=== PATIENT | male | born 1970 | race Caucasian/White ===

== ENCOUNTER 2018-09-18 | Inpatient (IN) | payer OTHER ==
[~2018-09-18] VITALS: Ht 160 cm; Wt 76.2 kg
--- NOTE | 2018-09-19 02:30 | NUR ---
JACQUARD LOOM HEDDLES TIER NOTE: PT ADMITTED FROM [place] [facility] WITH ADMITTING DIAGNOSIS OF ETOH CIRRHOSIS/ASCITES. PT IS ALERT AND ORIENTED X3. ABLE TO MAKE NEEDS KNOWN. NO APPARENT DISTRESS NOTED. NO COMPLAINTS OF PAIN OR DISCOMFORT AT THIS TIME. PT NOTED TO HAVE JAUNDICED AND ABDOMINAL DISTENSION, BUT DENIES ABDOMINAL PAIN. ON ROOM AIR, BREATHING EVEN AND UNLABORED WITH NORMAL RESPIRATIONS. ON TELE MONITOR SINUS RHYTHM HR 89 BPM. PT HAS IV ON LEFT ANTECUBITAL #20 INTACT AND PATENT, FLUSHING WELL. PERTINENT ASSESSMENTS DONE. SCAB ON CHEST/FACE AND REDNESS ON PERIANAL/BILATERAL HEELS NOTED. PICTURES TAKEN AND PLACED ON CHART. PT IS CONTINENT ON BOTH BOWEL AND BLADDER, AMBULATORY TO THE BATHROOM. CALL LIGHT PLACED WITHIN REACH. KEPT CLEAN, DRY AND COMFORTABLE. SAFETY AND FALL PRECAUTIONS OBSERVED AND MAINTAINED. WILL CONTINUE TO MONITOR PT.
[2018-09-19 02:36] VITALS: BP 112/71
[2018-09-19] MEDS ORDERED: MAGNESIUM HYDROXIDE 30 ML UDC PO PRN (03:00)
[2018-09-19] MEDS ORDERED: ONDANSETRON HCL/PF 4 MG/2 ML VIAL IVP PRN (03:00)
--- NOTE | 2018-09-19 03:00 | NUR ---
PLANTING MACHINE OPERATOR NOTE: PT REFUSED BELTRAN CATH, STATED "I CAN GO TO THE BATHROOM JUST FINE". EXTRUDER LISA SAMPSON AWARE.
[2018-09-19 03:21] LABS: BASOPHILS % (AUTO) 0.2 % (0.0-2.0); EOSINOPHILS % (AUTO) 0.7 % (0.0-6.0); HEMATOCRIT 35 % (39-51); HEMOGLOBIN 12.3 g/dL (13.5-17.5); LYMPHOCYTES % (AUTO) 14.1 % (20.0-44.0); MEAN CORPUSCULAR HGB CONC 35 g/dl (31.0-36.0); MEAN CORPUSCULAR VOLUME 119 fL (80-96); MONOCYTES # (AUTO) 0.3 /CMM (0.1-1.30); MONOCYTES % (AUTO) 4.7 % (2.0-12.0); NEUTROPHILS # (AUTO) 5.7 /CMM (1.8-8.9); NEUTROPHILS % (AUTO) 80.3 % (43.0-81.0); PLATELET COUNT (AUTO) 117 /CMM (150-450); RED BLOOD CELL COUNT(AUTO) 2.95 MIL/uL (4.5-6.0); WHITE BLOOD COUNT (AUTO) 7.2 K/uL (4.3-11.0)
[2018-09-19 03:38] LABS: ALANINE AMINOTRANSFERASE 100 U/L (12-78); ALBUMIN 1.7 g/dL (3.4-5.0); ALKALINE PHOSPHATASE 128 U/L (46-116); ASPARTATE AMINOTRANSFERASE 291 U/L (15-37); BILIRUBIN,DIRECT 14.1 mg/dL (0.0-0.2); BILIRUBIN,TOTAL 17.6 mg/dL (0.2-1.0); CALCIUM, SERUM 8.5 mg/dL (8.5-10.1); CARBON DIOXIDE 29 mmol/L (21-32); CHLORIDE 83 mmol/L (98-107); CREATININE 1.7 mg/dL (0.6-1.3); GLUCOSE 84 mg/dL (74-106); MAGNESIUM 1.3 mg/dL (1.8-2.4); PHOSPHORUS 2.5 mg/dL (2.5-4.9); POTASSIUM 3.4 mmol/L (3.5-5.1); TOTAL PROTEIN, SERUM 5.8 g/dL (6.4-8.2); UREA NITROGEN, BLOOD 71 mg/dL (7-18)
[2018-09-19 03:42] LABS: SODIUM SERUM 119 mmol/L (136-145)
[2018-09-19 03:46] LABS: CHOLESTEROL 44 mg/dL (<200); LDL 31 mg/dL (0-99); THYROID STIMULATING HORMONE 2.638 uIU/mL (0.358-3.74); TRIGLYCERIDES 203 mg/dL (30-150)
[2018-09-19 03:52] LABS: HDL CHOLESTEROL < 10 mg/dL (40-60)
[2018-09-19 04:00] VITALS: BP 105/67
[2018-09-19 04:09] LABS: LIPASE 2417 U/L (73-393)
--- NOTE | 2018-09-19 04:13 | NUR ---
FRONT DESK ASSISTANT NOTE: QUETA SAMPSON MADE AWARE REGARDING CRITICAL LAB VALUES OF PT.
[2018-09-19] MEDS ORDERED: POTASSIUM CHLORIDE 20 MEQ TAB.PRT.SR PO ONE (04:30)
[2018-09-19] MEDS ORDERED: IV NS 0.9% 1,000 ML IV SCH (04:30)
[2018-09-19] MEDS ORDERED: LEVOFLOXACIN 500 MG /D5W 100ML 100 ML IV ONE (04:32)
[2018-09-19] MEDS: LEVOFLOXACIN 500 MG /D5W 100ML 500 MG in PREMIX 1 EA IV SCH (04:35)
[2018-09-19] MEDS: AZITHROMYCIN 250 MG TABLET PO SCH (04:36)
[2018-09-19 05:01] LABS: BAND % (MANUAL) 7 % (0.0-5.0); EOSINOPHILS % (MANUAL) 1 % (0-4); LYMPHOCYTES % (MANUAL) 20 % (16-48); METAMYELOCYTES % 2 % (0-0); MONOCYTES % (MANUAL) 2 % (0-11.0); MYELOCYTES % 3 % (0-0); NEUTROPHILS % (MANUAL) 64 (42-76); PROMYELOCYTES % 1 % (0-0)
--- NOTE | 2018-09-19 06:18 | NUR ---
SHEEP AND WHEAT FARMER NOTE: SPOKE TO JESSICA (SISTER) REGARDING PATIENT'S LIST OF HOME MEDS AND SHE STATED THAT SHE'LL COME TODAY AND BRING THE LIST OF HOME MEDS. WILL ENDORSE TO DAY SHIFT RN.
--- NOTE | 2018-09-19 06:35 | NUR ---
REMOTE SENSING TECHNICIAN NOTE: NO CHANGES NOTED THROUGHOUT THE SHIFT. NO APPARENT DISTRESS NOTED. DENIES PAIN AND DISCOMFORT AT THIS TIME. NO SOB NOTED. ON TELE MONITOR SINUS RHYTHM HR 98 BPM. IV ON LEFT ANTECUBITAL #20 INTACT AND PATENT WITH IVF INFUSING WELL. ENCOURAGED TO VERBALIZE NEEDS AND CONCERNS AND TO CALL FOR ASSISTANCE IF NEEDED. KEPT CLEAN, DRY AND COMFORTABLE. WILL ENDORSE TO DAY SHIFT RN FOR CONTINUITY OF CARE.
[2018-09-19 06:41] LABS: APPEARANCE,URINE TURBID (CLEAR); BILIRUBIN,URINE 3+ (NEGATIVE); BLOOD, URINE TRACE Ery/uL (NEGATIVE); COLOR,URINE AMBER (YELLOW); KETONES,URINE NEGATIVE (NEGATIVE); LEUKOCYTE ESTERASE ,URINE NEGATIVE (NEGATIVE); NITRITE, URINE POSITIVE (NEGATIVE); PH,URINE 5.5 (5.0-8.0); PROTEIN,URINE NEGATIVE (NEGATIVE); UGLUCOSE NEGATIVE (NEGATIVE); UROBILINOGEN,URINE 0.2 EU/dL (0.2)
[2018-09-19 06:53] LABS: BACTERIA,URINE Many /HPF (None Seen); RBC,URINE 0-2 /HPF (0-2); SQUAMOUS EPITHELIAL CELL,UR Rare /HPF (None Seen); WBC,URINE 0-2 /HPF (0-3)
--- NOTE | 2018-09-19 07:30 | NUR ---
ENROLLMENT MANAGEMENT VICE PRESIDENT NOTE: RECEIVED PATIENT IN BED, ASLEEP, BUT AROUSABLE WITH TACTILE STIMULI. RESPIRATION EVEN AND UNLABORED SATURATING 99% IN ROOM AIR. PATIENT DENIED PAIN AT THIS TIME JUST A SLIGHT DISCOMFORT ON HIS ABDOMINAL AREA. ON SHIRT FINISHER SR HR- 97. (L) AC IV SITE REMAINED PATENT AND INTACT INFUSING NS @50ML/HR. BED ALARMED AND LOCKED AT ALL TIMES. PATIENT WAS LAYING FLAT ON THE BED. CALL LIGHT WITHIN REACH. NEEDS ANTICIPATED.
[2018-09-19 08:00] VITALS: BP 108/68
[2018-09-19] MEDS: MAG HYDROX/AL HYDROX/SIMETH 30 ML UDC PO PRN (08:13)
[2018-09-19] MEDS: PANTOPRAZOLE 40 MG TABLET.DR PO SCH (08:13)
[2018-09-19] MEDS ORDERED: AMLO5TAB7 PO (08:19)
--- NOTE | 2018-09-19 08:30 | NUR ---
BANQUET SERVER NOTE: CALLED AND PAGED DR. GARCIA RE: THE LACTIC ACID RESULT OF 2.1 AND MD HAS NO ORDER AT THIS TIME.
[2018-09-19] MEDS: Magnesium 1GM/D5W 100ML PREMIX 100 ML IV SCH ×4 (10:30→14:06)
[2018-09-19] MEDS ORDERED: Potassium Chloride 20 MEQ in IV NS 0.9% 1,000 ML IV PRN (11:44)
[2018-09-19 12:00] VITALS: BP 97/63
[2018-09-19 12:33] LABS: CREATININE, URINE 114.7 MG/DL (30.0-125.0); URINE SODIUM, RANDOM < 5 mmol/l (40-220); URINE TOTAL PROTEIN 26.1 mg/dL (0-11.9)
[2018-09-19 13:45] LABS: BASOPHILS % (AUTO) 0.4 % (0.0-2.0); EOSINOPHILS % (AUTO) 0.4 % (0.0-6.0); HEMATOCRIT 31 % (39-51); LYMPHOCYTES # (AUTO) 1.1 /CMM (0.8-4.8); LYMPHOCYTES % (AUTO) 13.1 % (20.0-44.0); MEAN CORPUSCULAR HGB CONC 35 g/dl (31.0-36.0); MEAN CORPUSCULAR VOLUME 118 fL (80-96); MONOCYTES # (AUTO) 0.6 /CMM (0.1-1.30); MONOCYTES % (AUTO) 6.9 % (2.0-12.0); NEUTROPHILS # (AUTO) 6.5 /CMM (1.8-8.9); NEUTROPHILS % (AUTO) 79.2 % (43.0-81.0); PLATELET COUNT (AUTO) 117 /CMM (150-450); RED BLOOD CELL COUNT(AUTO) 2.64 MIL/uL (4.5-6.0); WHITE BLOOD COUNT (AUTO) 8.2 K/uL (4.3-11.0)
[2018-09-19 14:05] LABS: BAND % (MANUAL) 2 % (0.0-5.0); LYMPHOCYTES % (MANUAL) 10 % (16-48); NEUTROPHILS % (MANUAL) 85 (42-76)
[2018-09-19 14:06] LABS: MONOCYTES % (MANUAL) 3 % (0-11.0)
[2018-09-19] MEDS ORDERED: ALBUMIN 25% 25 GM in PREMIX 1 EA IV SCH (14:30)
--- NOTE | 2018-09-19 14:30 | NUR ---
SHIPPING LEAD PERSON NOTE: DR. GARCIA WAS PRESENT IN THE UNIT AND MADE HIM AWARE OF THE ALBUMIN 1.4 AND SODIUM 120. MD SAID THAT HE WILL WRITE ORDERS FOR THE PATIENT.
[2018-09-19 14:33] LABS: BILIRUBIN,DIRECT 13.3 mg/dL (0.0-0.2); BILIRUBIN,TOTAL 16.5 mg/dL (0.2-1.0); CALCIUM, SERUM 7.9 mg/dL (8.5-10.1); CREATININE 1.7 mg/dL (0.6-1.3); POTASSIUM 3.4 mmol/L (3.5-5.1); TOTAL PROTEIN, SERUM 5.1 g/dL (6.4-8.2)
[2018-09-19 14:36] LABS: ALBUMIN 1.4 g/dL (3.4-5.0)
--- NOTE | 2018-09-19 15:05 | NUR ---
CERTIFIED DIALYSIS TECHNICIAN NOTE: DR. GARCIA STILL PRESENT IN THE UNIT AND WAS INFORMED OF THE LACTIC ACID OF 2.3 MD WITH NO NEW ORDER AT THIS TIME. PATIENT AND JESSICA, SISTER WAS MADE AWARE.
[2018-09-19 16:00] VITALS: BP 101/63
[2018-09-19] MEDS: CALCIUM CARBONATE 500 MG TAB.CHEW PO PRN (16:57)
[2018-09-19] MEDS: IV LR 1000 ML 1,000 ML IV PRN (16:59)
[2018-09-19] MEDS ORDERED: ELECTROLYTE,ORAL 1,000 ML BOTTLE PO ONE (18:00)
--- NOTE | 2018-09-19 18:23 | NUR ---
EDIL RN NOTE: INFORMED DR. GARCIA AND MADE HIM AWARE THAT PATIENT WAS REQUESTING IF THERE IS SOMETHING THAT HE CAN ORDER IN ORDER TO NUMB THE PATIENT'S THROAT DUE TO THE INFLAMMATION THAT HE FELT ON THE THROAT. WITH ORDER FOR VISCOUS LIDOCAINE, NOTED AND CARRIED OUT. PATIENT AND SISTER, JESSICA MADE AWARE.
--- NOTE | 2018-09-19 19:50 | NUR ---
EDIL RN NOTE: REPORT GIVEN TO PM SHIFT NURSE FOR CONTINUITY OF CARE. PATIENT ON STABLE CONDITION AT THIS TIME.
[2018-09-19] MEDS: LIDOCAINE VISCOUS 2% UD 15 ML UDC MM PRN (19:53)
[2018-09-19 20:00] VITALS: BP 98/73
--- NOTE | 2018-09-19 20:00 | NUR ---
EDIL RN NOTE PT IN BED AWAKE. A/O X 4, NO SOB NOTED. NOTED PT WITH SEVER JAUNDICE. ABD DISTENDED. PT IS C/O SORE AND PAIN IN THROAT. LIDOCAINE VISCOUS 15 ML GIVEN ORDERED. IVF LR INFUSING AT 150 ML/HR, NO S/S OF INFILTRATION NOTED. ON TELE MONITOR SR WITH PAC AND PVC HR 77. SIDE RAILS UP X 2 AND CALL LIGHT WITHIN REACH. VSS. CONTINUE TO MONITOR.
[2018-09-19] MEDS: ALBUMIN 25% 12.5 GM in PREMIX 1 EA IV SCH (21:48)
[2018-09-19 23:52] LABS: APPEARANCE,URINE CLEAR (CLEAR); BILIRUBIN,URINE 3+ (NEGATIVE); BLOOD, URINE NEGATIVE Ery/uL (NEGATIVE); COLOR,URINE DARK YELLO (YELLOW); KETONES,URINE NEGATIVE (NEGATIVE); LEUKOCYTE ESTERASE ,URINE NEGATIVE (NEGATIVE); NITRITE, URINE NEGATIVE (NEGATIVE); PROTEIN,URINE NEGATIVE (NEGATIVE); UGLUCOSE NEGATIVE (NEGATIVE); UROBILINOGEN,URINE 0.2 EU/dL (0.2)
[2018-09-20] VITALS: BP 100/69
[2018-09-20 00:01] LABS: BACTERIA,URINE Moderate /HPF (None Seen); RBC,URINE 0-2 /HPF (0-2); SQUAMOUS EPITHELIAL CELL,UR Few /HPF (None Seen)
[2018-09-20] MEDS: LEVOFLOXACIN 500 MG /D5W 100ML 500 MG in PREMIX 1 EA IV SCH (03:45)
[2018-09-20] MEDS: IV LR 1000 ML 1,000 ML IV PRN (03:46)
[2018-09-20 04:00] VITALS: BP 156/81
[2018-09-20] MEDS: AZITHROMYCIN 250 MG TABLET PO SCH (04:00)
[2018-09-20] MEDS: ALBUMIN 25% 12.5 GM in PREMIX 1 EA IV SCH ×2 (06:38→20:07)
--- NOTE | 2018-09-20 06:45 | NUR ---
EDIL RN NOTE PT IN BED NO CHANGE IN CONDITION. WILL ENDORSE TO DAY SHIFT NURSE FOR CONTINUE TO CARE.
[2018-09-20 07:15] LABS: BASOPHILS % (AUTO) 0.3 % (0.0-2.0); EOSINOPHILS % (AUTO) 0.3 % (0.0-6.0); HEMATOCRIT 33 % (39-51); HEMOGLOBIN 11.8 g/dL (13.5-17.5); LYMPHOCYTES # (AUTO) 1.2 /CMM (0.8-4.8); LYMPHOCYTES % (AUTO) 9.1 % (20.0-44.0); MEAN CORPUSCULAR HGB CONC 36 g/dl (31.0-36.0); MEAN CORPUSCULAR VOLUME 118 fL (80-96); MONOCYTES # (AUTO) 0.4 /CMM (0.1-1.30); MONOCYTES % (AUTO) 2.9 % (2.0-12.0); NEUTROPHILS # (AUTO) 11.4 /CMM (1.8-8.9); NEUTROPHILS % (AUTO) 87.4 % (43.0-81.0); PLATELET COUNT (AUTO) 136 /CMM (150-450); RED BLOOD CELL COUNT(AUTO) 2.82 MIL/uL (4.5-6.0)
--- NOTE | 2018-09-20 07:30 | NUR ---
EDIL RN NOTE: RECEIVED PATIENT IN BED, ASLEEP, BUT AROUSABLE WITH TACTILE STIMULI. RESPIRATION EVEN AND UNLABORED SATURATING 99% IN ROOM AIR. PATIENT DENIED PAIN AT THIS TIME JUST A SLIGHT DISCOMFORT ON HIS ABDOMINAL AREA. ON [employer] ARTISTIC DIRECTOR SR HR- 74. (L) AC IV SITE REMAINED PATENT AND INTACT INFUSING LR @150ML/HR. BED ALARMED AND LOCKED AT ALL TIMES. PATIENT WAS LAYING FLAT ON THE BED. CALL LIGHT WITHIN REACH. NEEDS ANTICIPATED.
[2018-09-20 07:31] LABS: CALCIUM, SERUM 7.8 mg/dL (8.5-10.1); CREATININE 1.5 mg/dL (0.6-1.3); MAGNESIUM 2.9 mg/dL (1.8-2.4); PHOSPHORUS 1.2 mg/dL (2.5-4.9); POTASSIUM 3.6 mmol/L (3.5-5.1)
[2018-09-20 08:00] VITALS: BP_SYST 101; BP_SYST 156; BP_DIAS 68; BP_DIAS 94
[2018-09-20] MEDS: LIDOCAINE VISCOUS 2% UD 15 ML UDC MM PRN (08:11)
[2018-09-20] MEDS: PANTOPRAZOLE 40 MG TABLET.DR PO SCH (08:11)
[2018-09-20 08:54] LABS: BAND % (MANUAL) 7 % (0.0-5.0); NEUTROPHILS % (MANUAL) 80 (42-76)
[2018-09-20 08:55] LABS: LYMPHOCYTES % (MANUAL) 10 % (16-48); MONOCYTES % (MANUAL) 3 % (0-11.0)
[2018-09-20] MEDS: MAG HYDROX/AL HYDROX/SIMETH 30 ML UDC PO PRN (10:49)
[2018-09-20] MEDS: CALCIUM CARBONATE 500 MG TAB.CHEW PO PRN (10:49)
[2018-09-20] MEDS ORDERED: POTASSIUM PHOSPHATE MM 15 MMOL in IV D5W 250 ML IV SCH (11:00)
[2018-09-20] MEDS: POTASSIUM PHOSPHATE MM 7.5 MMOL in IV D5W 100 ML IV SCH ×2 (11:29→14:56)
[2018-09-20] MEDS: AMLODIPINE BESYLATE 5 MG TABLET PO SCH (11:30)
[2018-09-20 12:00] VITALS: BP 106/68
[2018-09-20 12:40] LABS: CALCIUM, SERUM 8.2 mg/dL (8.5-10.1); CREATININE 1.3 mg/dL (0.6-1.3); POTASSIUM 3.3 mmol/L (3.5-5.1)
[2018-09-20 12:46] LABS: ALBUMIN 1.9 g/dL (3.4-5.0); BILIRUBIN,TOTAL 19.2 mg/dL (0.2-1.0); TOTAL PROTEIN, SERUM 5.4 g/dL (6.4-8.2)
[2018-09-20] MEDS: Potassium Chloride 40 MEQ in IV D5/ 0.9% NACL 1,000 ML IV PRN (13:04)
[2018-09-20] MEDS ORDERED: PHYTONADIONE 5 MG TABLET PO ONE (13:30)
[2018-09-20] MEDS ORDERED: PHYTONADIONE INJ 10 MG/1 ML AMPUL IM ONE (14:00)
[2018-09-20] MEDS: LACTULOSE 10 G/15 ML UDC (PYXIS) PO SCH ×2 (14:17→20:12)
[2018-09-20 16:00] VITALS: BP 108/69
--- NOTE | 2018-09-20 19:50 | NUR ---
EDIL RN NOTE: REPORT GIVEN TO PM SHIFT NURSE FOR CONTINUITY OF CARE. EMPHASIZED TO PM NURSE THAT THE ALBUMIN 3RD BOTTLE WAS NOT ADMINISTER DUE TO UNAVAILABILITY OF ANOTHER IV LINE. PATIENT WAS RECEIVING THE POTASSIUM PHOSPHATE AT THIS TIME. PATIENT ALSO HAD 1 EPISODE OF LOOSE STOOL DUE TO THE ADMINISTRATION OF LACTULOSE.
[2018-09-20 20:00] VITALS: BP 127/83
[2018-09-21] VITALS: BP 114/74
[2018-09-21] MEDS: LACTULOSE 10 G/15 ML UDC (PYXIS) PO SCH ×4 (02:04→20:03)
[2018-09-21] MEDS: CALCIUM CARBONATE 500 MG TAB.CHEW PO PRN ×3 (03:39→19:12)
[2018-09-21] MEDS: AZITHROMYCIN 250 MG TABLET PO SCH (03:39)
[2018-09-21] MEDS: LEVOFLOXACIN 500 MG /D5W 100ML 500 MG in PREMIX 1 EA IV SCH (03:39)
[2018-09-21 04:00] VITALS: BP 115/82
[2018-09-21 06:29] LABS: BASOPHILS # (AUTO) 0.1 /CMM (0.0-0.2); BASOPHILS % (AUTO) 0.8 % (0.0-2.0); EOSINOPHILS % (AUTO) 0.2 % (0.0-6.0); HEMATOCRIT 34 % (39-51); HEMOGLOBIN 11.7 g/dL (13.5-17.5); LYMPHOCYTES # (AUTO) 1.4 /CMM (0.8-4.8); LYMPHOCYTES % (AUTO) 8.7 % (20.0-44.0); MEAN CORPUSCULAR HGB CONC 35 g/dl (31.0-36.0); MEAN CORPUSCULAR VOLUME 119 fL (80-96); MONOCYTES # (AUTO) 0.5 /CMM (0.1-1.30); MONOCYTES % (AUTO) 3.1 % (2.0-12.0); NEUTROPHILS # (AUTO) 14.2 /CMM (1.8-8.9); NEUTROPHILS % (AUTO) 87.2 % (43.0-81.0); PLATELET COUNT (AUTO) 145 /CMM (150-450); RED BLOOD CELL COUNT(AUTO) 2.83 MIL/uL (4.5-6.0); WHITE BLOOD COUNT (AUTO) 16.2 K/uL (4.3-11.0)
[2018-09-21 06:53] LABS: CALCIUM, SERUM 7.3 mg/dL (8.5-10.1); CREATININE 1.3 mg/dL (0.6-1.3); MAGNESIUM 1.8 mg/dL (1.8-2.4); PHOSPHORUS 1.3 mg/dL (2.5-4.9); POTASSIUM 3.5 mmol/L (3.5-5.1)
[2018-09-21 07:01] LABS: BAND % (MANUAL) 2 % (0.0-5.0); LYMPHOCYTES % (MANUAL) 4 % (16-48); METAMYELOCYTES % 1 % (0-0); MONOCYTES % (MANUAL) 5 % (0-11.0); NEUTROPHILS % (MANUAL) 88 (42-76)
[2018-09-21 08:00] VITALS: BP 102/68
[2018-09-21] MEDS: AMLODIPINE BESYLATE 5 MG TABLET PO SCH (08:48)
[2018-09-21] MEDS: PANTOPRAZOLE 40 MG TABLET.DR PO SCH (08:48)
[2018-09-21] MEDS: Z GUARD REMEDY 2 OZ OINT TP PRN (08:49)
--- NOTE | 2018-09-21 08:54 | NUR ---
WOUND CARE CONSULT: PT PRESENTS WITH DRY SCAB TO CHEST AND RED RASH TO INNER BUTTOCKS AND PERINEUM, PRESENT ON ADMISSION. RECOMMENDATIONS MADE FOR SKIN PROTECTION AND CARE. DISCUSSED WITH NURSING STAFF. WILL SEE PRN. PIERRE IN AGREEMENT WITH PLAN OF CARE. CURRENT COLIN SCORE IS 17. DEFER TO MD FOR CHEST SCAB. PT STATES THAT HE PICKS AT HIS SKIN. Addendum: 09/21/18 at 0856 by EUSEBIA CURRY WNDNU Amended: Links added.
[2018-09-21] MEDS: CLOTRIMAZOLE 1% 15 GM TUBE TP SCH ×2 (09:00→16:58)
--- NOTE | 2018-09-21 10:41 | NUR ---
Social service consult requested by QUETA Ward for alcohol abuse. 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 SW met with pt. beside. Pt. is alert and oriented x 4. Pt. was cooperative during the assessment. Pt. is soft spoken. Pt. lives with his family at [address] [place] [address], in [place]. Pt. is employed and works for [employer]. Pt. states his last drink was a week ago from Friday. Pt. drinks pre-mixed alcoholic drinks. Pt. wouldn't specify how many per day but states, " a couple of bottles." SW offered pt. referrals to alcoholic treatment programs, however pt. declined, stating, " I have stopped drinking now and can stop on my own." SW encouraged pt. to keep the referrals, however, pt. stated," I quit on my own the last time." Pt. denies any drug and cigarette use. Pt. denies any psychological diagnosis and denies suicidal/homicidal ideations and visual/auditory hallucinations at this this time. FATMATA once again offered pt. alcohol treatment referrals, and pt. declined. No other social service needs are requested at this time. SW is available, if needed.
[2018-09-21 12:00] VITALS: BP 109/70
[2018-09-21] MEDS: MAG HYDROX/AL HYDROX/SIMETH 30 ML UDC PO PRN (13:07)
[2018-09-21 16:00] VITALS: BP 104/73
[2018-09-21 16:08] LABS: AMYLASE 741 U/L (25-115)
[2018-09-21 16:14] LABS: LIPASE 2879 U/L (73-393)
[2018-09-21] MEDS: Magnesium 1GM/D5W 100ML PREMIX 100 ML IV SCH ×2 (16:57→18:23)
[2018-09-21] MEDS: Potassium Chloride 40 MEQ in IV D5/ 0.9% NACL 1,000 ML IV PRN (17:03)
--- NOTE | 2018-09-21 17:30 | NUR ---
RN NOTE PER DR BALLARD AND DOMINIC SELLERS TO HOLD PARACENTHESIS AND CT WITH CONTRAST UNTIL TOMORROW. RADIOLOGY AWARE.
[2018-09-21 17:33] LABS: C-REACTIVE PROTEIN 11.2 mg/dL (0.0-0.9)
[2018-09-21] MEDS: POTASSIUM PHOSPHATE MM 7.5 MMOL in IV NS 0.9% 100 ML IV SCH ×3 (18:55→23:39)
--- NOTE | 2018-09-21 19:23 | NUR ---
TD RN NOTES RECEIVED PT ON BED. A/O X 4 WITH FAMILY ON BEDSIDE. ON ROOM AIR NO RESPIRATORY DISTRESS NOTED. ON TELE MONITOR SR 74. IV ACCESS ON LAC G20 WITH KC1 40MEQ RUNNING @ 75MHR AND ANOTHER RIGHT HAND G22G PATENT AND INTACT. HEAD OF BED ELEVATED. SIDE RAILS UP. CALL LIGHT WITHIN REACH. BED ALARM ON. WILL CONTINUE TO MONITOR PT CLOSELY.
[2018-09-21 20:00] VITALS: BP 101/66
--- NOTE | 2018-09-21 22:00 | NUR ---
TD RN NOTES PER DR JACKY TUCKER TO HAVE ICE CHIPS. NPO EXCEPT MEDS.
[2018-09-21] MEDS: NITROFURANTOIN/NITROFURAN MAC 100 MG CAPSULE PO SCH (22:07)
--- NOTE | 2018-09-21 23:42 | NUR ---
TD RN NOTES V/S 0000 NOT TAKEN. PT WANTS TO REST. EXPLAINED RISK AND BENEFITS PT STILL REFUSED. WILL CONTINUE TO MONITOR PT CLOSELY.
[2018-09-22] MEDS ORDERED: NITROFURANTOIN MACROCRYSTAL 50 MG CAPSULE PO SCH
[2018-09-22] MEDS: LACTULOSE 10 G/15 ML UDC (PYXIS) PO SCH ×4 (00:51→20:03)
[2018-09-22] MEDS: POTASSIUM PHOSPHATE MM 7.5 MMOL in IV NS 0.9% 100 ML IV SCH (03:13)
--- NOTE | 2018-09-22 04:08 | NUR ---
TD RN NOTES PT REFUSED V/S CHECKED. PER PT HE WANTS TO REST. WILL MONITOR PT CLOSELY.
--- NOTE | 2018-09-22 06:28 | NUR ---
TD RN NOTES NO ACUTE CHANGES NOTED DURING THE SHIFT. PROVIDED COMFORT. DUE MEDS GIVEN. PROVIDED COMFORT AND SAFETY. WILL ENDORSE TO THE AM NURSE FOR CONTINUITY OF CARE.
--- NOTE | 2018-09-22 07:00 | NUR ---
RN NOTES RECEIVED PT ON BED. A/O X 4, ON RA , RESPIRATION EVEN AND UNLABORED, NO DISTRESS NOTED, ON TELE SR HR IN 80'S . NPO THIS AM, IVF RUNNING AT 75CC /HR VIA LEFT AC IV SITE G 20 , SITE CLEAN , DRY AND INTACT, SR UP x3, CALL LIGHT WITHIN EASY REACH, BED LOCKED AND IN LOWEST POSITION, CONTINUE TO MONITOR .
[2018-09-22 07:25] LABS: BASOPHILS # (AUTO) 0.1 /CMM (0.0-0.2); BASOPHILS % (AUTO) 0.4 % (0.0-2.0); EOSINOPHILS % (AUTO) 0.2 % (0.0-6.0); HEMATOCRIT 32 % (39-51); HEMOGLOBIN 11.2 g/dL (13.5-17.5); LYMPHOCYTES # (AUTO) 1.2 /CMM (0.8-4.8); LYMPHOCYTES % (AUTO) 6.2 % (20.0-44.0); MEAN CORPUSCULAR HGB CONC 35 g/dl (31.0-36.0); MEAN CORPUSCULAR VOLUME 119 fL (80-96); MONOCYTES # (AUTO) 0.7 /CMM (0.1-1.30); MONOCYTES % (AUTO) 3.4 % (2.0-12.0); NEUTROPHILS # (AUTO) 17.2 /CMM (1.8-8.9); NEUTROPHILS % (AUTO) 89.8 % (43.0-81.0); PLATELET COUNT (AUTO) 154 /CMM (150-450); RED BLOOD CELL COUNT(AUTO) 2.68 MIL/uL (4.5-6.0); WHITE BLOOD COUNT (AUTO) 19.2 K/uL (4.3-11.0)
[2018-09-22 07:30] LABS: CREATININE 1.1 mg/dL (0.6-1.3); MAGNESIUM 1.9 mg/dL (1.8-2.4); PHOSPHORUS 2.3 mg/dL (2.5-4.9); POTASSIUM 4.4 mmol/L (3.5-5.1)
[2018-09-22 07:47] LABS: BAND % (MANUAL) 2 % (0.0-5.0); LYMPHOCYTES % (MANUAL) 5 % (16-48); MONOCYTES % (MANUAL) 4 % (0-11.0); MYELOCYTES % 2 % (0-0); NEUTROPHILS % (MANUAL) 87 (42-76)
[2018-09-22 08:00] VITALS: BP 103/75
[2018-09-22] MEDS: PANTOPRAZOLE 40 MG TABLET.DR PO SCH (08:07)
[2018-09-22] MEDS: NITROFURANTOIN/NITROFURAN MAC 100 MG CAPSULE PO SCH ×2 (08:07→20:03)
[2018-09-22] MEDS: AMLODIPINE BESYLATE 5 MG TABLET PO SCH (08:07)
[2018-09-22 08:08] LABS: *SPE A/G RATIO 0.4 (0.7-1.7); *SPE ALBUMIN 1.5 g/dL (2.9-4.4); *SPE ALPHA-1-GLOBULIN 0.3 g/dL (0.0-0.4); *SPE ALPHA-2-GLOBULIN 0.5 g/dL (0.4-1.0); *SPE BETA GLOBULIN 1.3 g/dL (0.7-1.3); *SPE GLOBULIN, TOTAL 3.5 g/dL (2.2-3.9); *SPE M-SPIKE Not Observed g/dL (Not Observed); *SPEGAMMA GLOBULIN 1.5 g/dL (0.4-1.8)
[2018-09-22] MEDS: CLOTRIMAZOLE 1% 15 GM TUBE TP SCH ×2 (08:12→16:10)
[2018-09-22] MEDS ORDERED: IV NS 0.9% 250 ML IV ONE (09:55)
[2018-09-22] MEDS ORDERED: IOHEXOL-300 100 ML VIAL IV ONE (09:55)
[2018-09-22] MEDS ORDERED: CT SWABBABLE VALVE TRANS SET 1 EA INFUS.SET MC ONE (09:55)
[2018-09-22] MEDS ORDERED: K PHOS NEUTRAL 250 MG TABLET PO ONE (12:00)
--- NOTE | 2018-09-22 12:00 | NUR ---
RN NOTES PT UP TO BATHROOM , SUPPORTIVE FAMILY AT THE BEDSIDE, CONTINUE TO MONITOR .
[2018-09-22 12:11] LABS: PTH, INTACT 51 pg/mL (15-65)
[2018-09-22] MEDS: Potassium Chloride 40 MEQ in IV D5/ 0.9% NACL 1,000 ML IV PRN (13:12)
[2018-09-22 16:00] VITALS: BP 114/73
--- NOTE | 2018-09-22 18:16 | NUR ---
RN NOTES VSS STABLE , NO SIGNIFICANT CHANGES NOTED ON THIS SHIFT, WILL ENDOSE TO SUPPLY REQUIREMENTS OFFICER NURSE FOR CONTINUITY OF CARE
[2018-09-22 20:00] VITALS: BP 110/82
--- NOTE | 2018-09-22 20:00 | NUR ---
ms/rn opening notes RECEIVED PATIENT IN BED, AWAKE, ALERT X3, ABLE RESTING COMFORTABLY IN BED, SKIN WARM TO TOUCH, RESPIRATIONS EVEN AND UNLABORED, VERBALIZES NEEDS, DISCUSSED PLAN OF CARE, INFORM WITH FLUID RESTRICTIONS, IV SITE CHECK, PATENT W/ NO S/S OF INFILTRATION, REQUIRE SAFETY MONITORING DUE TO FREQUENCY OF GOING TO BATHROOM, COMPLIANT TO MEDICATION. RECEIVED MEDICATION LACTULOSE, SKIN YELLOW COLOR. CALL LIGHTS WITHIN REACH, BED LOCKED, WILL MONITOR.
[2018-09-23] MEDS: LACTULOSE 10 G/15 ML UDC (PYXIS) PO SCH ×4 (01:34→19:16)
[2018-09-23 04:00] VITALS: BP 110/82
[2018-09-23 06:22] LABS: BASOPHILS % (AUTO) 0.1 % (0.0-2.0); EOSINOPHILS % (AUTO) 0.3 % (0.0-6.0); HEMATOCRIT 35 % (39-51); LYMPHOCYTES # (AUTO) 1.4 /CMM (0.8-4.8); MEAN CORPUSCULAR HGB CONC 35 g/dl (31.0-36.0); MEAN CORPUSCULAR VOLUME 120 fL (80-96); MONOCYTES # (AUTO) 0.7 /CMM (0.1-1.30); MONOCYTES % (AUTO) 3.5 % (2.0-12.0); NEUTROPHILS # (AUTO) 18.5 /CMM (1.8-8.9); NEUTROPHILS % (AUTO) 89.1 % (43.0-81.0); PLATELET COUNT (AUTO) 171 /CMM (150-450); RED BLOOD CELL COUNT(AUTO) 2.88 MIL/uL (4.5-6.0); WHITE BLOOD COUNT (AUTO) 20.7 K/uL (4.3-11.0)
--- NOTE | 2018-09-23 06:23 | NUR ---
MS/RN NOTES PATIENT ABLE TO SLEEP INTERMITENTLY, ASSISTED TO BATHROOM FOR BATHROOM, KEPT COMFORTABLE, APPLIED WARM COMPRESS ON THE LOWER BACK, ABLE TO COOPERATE AND PARTICPATE WITH CARE, CALL LIGHTS WITHIN REACH, BED LOCKED, ADBOMINAL DISTENTION NOTED, WILL MONITOR.WILL ENDORSE TO AM RN FOR ANUJA.
[2018-09-23 06:36] LABS: CALCIUM, SERUM 6.7 mg/dL (8.5-10.1); CREATININE 1.1 mg/dL (0.6-1.3); PHOSPHORUS 1.8 mg/dL (2.5-4.9); POTASSIUM 3.8 mmol/L (3.5-5.1)
[2018-09-23] MEDS: PANTOPRAZOLE 40 MG TABLET.DR PO SCH (07:30)
[2018-09-23 08:00] VITALS: BP 110/76
[2018-09-23] MEDS: AMLODIPINE BESYLATE 5 MG TABLET PO SCH (08:37)
[2018-09-23] MEDS: NITROFURANTOIN/NITROFURAN MAC 100 MG CAPSULE PO SCH ×2 (08:39→22:08)
[2018-09-23] MEDS: CLOTRIMAZOLE 1% 15 GM TUBE TP SCH ×2 (08:40→19:18)
[2018-09-23 09:11] LABS: BAND % (MANUAL) 1 % (0.0-5.0); LYMPHOCYTES % (MANUAL) 7 % (16-48); MONOCYTES % (MANUAL) 7 % (0-11.0); NEUTROPHILS % (MANUAL) 85 (42-76)
[2018-09-23] MEDS ORDERED: K PHOS NEUTRAL 250 MG TABLET PO ONE (15:00)
[2018-09-23 16:00] VITALS: BP 108/70
[2018-09-23] MEDS: Potassium Chloride 40 MEQ in IV D5/ 0.9% NACL 1,000 ML IV PRN (19:16)
--- NOTE | 2018-09-23 19:30 | NUR ---
MEDSURG RN NOTE PATIENT RESTING IN BED IN STABLE CONDITION, IV FLUIDS INFUSING ORDERED. IV SITES INTACT. NO ACUTE DISTRESS, ABLE TO MAKE NEEDS KNOWN. CALL LIGHT WITHIN REACH, BED IN LOW LOCKED POSITION, ENDORSED TO OFFICE COORDINATOR RECEPTIONIST NURSE FOR CONTINUITY OF CARE.
[2018-09-23 22:04] VITALS: BP 88/57
[2018-09-24 00:10] VITALS: BP 88/57
[2018-09-24] MEDS: LACTULOSE 10 G/15 ML UDC (PYXIS) PO SCH ×4 (02:01→18:08)
[2018-09-24 04:27] VITALS: BP 103/69
[2018-09-24 06:30] LABS: BASOPHILS # (AUTO) 0.1 /CMM (0.0-0.2); BASOPHILS % (AUTO) 0.5 % (0.0-2.0); EOSINOPHILS % (AUTO) 0.3 % (0.0-6.0); HEMATOCRIT 33 % (39-51); HEMOGLOBIN 11.4 g/dL (13.5-17.5); LYMPHOCYTES # (AUTO) 1.3 /CMM (0.8-4.8); LYMPHOCYTES % (AUTO) 7.3 % (20.0-44.0); MEAN CORPUSCULAR HGB CONC 35 g/dl (31.0-36.0); MEAN CORPUSCULAR VOLUME 121 fL (80-96); MONOCYTES # (AUTO) 0.5 /CMM (0.1-1.30); MONOCYTES % (AUTO) 2.6 % (2.0-12.0); NEUTROPHILS # (AUTO) 15.5 /CMM (1.8-8.9); NEUTROPHILS % (AUTO) 89.3 % (43.0-81.0); PLATELET COUNT (AUTO) 141 /CMM (150-450); RED BLOOD CELL COUNT(AUTO) 2.71 MIL/uL (4.5-6.0); WHITE BLOOD COUNT (AUTO) 17.3 K/uL (4.3-11.0)
[2018-09-24 06:39] LABS: ALANINE AMINOTRANSFERASE 52 U/L (12-78); ALKALINE PHOSPHATASE 165 U/L (46-116); ASPARTATE AMINOTRANSFERASE 152 U/L (15-37); BILIRUBIN,TOTAL 16.5 mg/dL (0.2-1.0); CALCIUM, SERUM 6.3 mg/dL (8.5-10.1); CARBON DIOXIDE 26 mmol/L (21-32); CHLORIDE 96 mmol/L (98-107); CREATININE 1.1 mg/dL (0.6-1.3); GLUCOSE 140 mg/dL (74-106); POTASSIUM 4.1 mmol/L (3.5-5.1); SODIUM SERUM 131 mmol/L (136-145); TOTAL PROTEIN, SERUM 5.3 g/dL (6.4-8.2); UREA NITROGEN, BLOOD 34 mg/dL (7-18)
[2018-09-24] MEDS: PANTOPRAZOLE 40 MG TABLET.DR PO SCH (06:46)
[2018-09-24 06:48] LABS: ALBUMIN 1.4 g/dL (3.4-5.0)
[2018-09-24 08:00] VITALS: BP 104/71
[2018-09-24 08:23] LABS: BILIRUBIN,DIRECT 13.4 mg/dL (0.0-0.2)
--- NOTE | 2018-09-24 08:42 | NUR ---
Elevated lactic acid 3.4 Low albumin level 1.[address] Magana, with no new orders at this time, per MD he see patient.
[2018-09-24 08:58] LABS: BAND % (MANUAL) 2 % (0.0-5.0); EOSINOPHILS % (MANUAL) 1 % (0-4); LYMPHOCYTES % (MANUAL) 3 % (16-48); MONOCYTES % (MANUAL) 3 % (0-11.0); NEUTROPHILS % (MANUAL) 91 (42-76)
[2018-09-24] MEDS: NITROFURANTOIN/NITROFURAN MAC 100 MG CAPSULE PO SCH ×2 (09:05→21:21)
--- NOTE | 2018-09-24 09:05 | NUR ---
MS RN INITIAL NOTES Patient in bed, awake. Stable on RA, no shortness of breath, refused breakfast. Appears weak, abdomen still distended, rounded, skin jaundice, Hx Alcohol liver hepatitis. IVF infusing, lactic elevated, afebrile. Maintained safety. Will cont to monitor.
[2018-09-24] MEDS: AMLODIPINE BESYLATE 5 MG TABLET PO SCH (09:06)
[2018-09-24] MEDS: Potassium Chloride 40 MEQ in IV D5/ 0.9% NACL 1,000 ML IV PRN (09:08)
[2018-09-24] MEDS: CLOTRIMAZOLE 1% 15 GM TUBE TP SCH ×2 (09:10→18:06)
[2018-09-24] MEDS ORDERED: diphenhydrAMINE HCL 25 MG CAPSULE PO ONE (12:30)
[2018-09-24 16:00] VITALS: BP 112/79
[2018-09-24] MEDS: ENSURE CLEAR 237 ML LIQUID (MIX BERRY) PO SCH (17:00)
[2018-09-24] MEDS ORDERED: CEFOTAXIME SODIUM 1 G in IV D5W 50 ML IV SCH (17:00)
[2018-09-24] MEDS: CEFTRIAXONE 2 G in IV D5W 100 ML IV SCH (18:03)
[2018-09-24] MEDS: Z GUARD REMEDY 2 OZ OINT TP PRN (18:06)
--- NOTE | 2018-09-24 18:49 | NUR ---
MS RN CLOSING NOTES Patient in bed, dinner served with poor appetite, provided supplement ensure drink. Had multiple loose/diarrhea today, lactulose held as ordered. VSS, stable on room air, denies SOB. IVF infusing, maintained at 75ml/hr. Continued on PO + IV antibiotic per GI. Coccyx with open wound, wound care consult place, charge nurse is aware. Maintained safety, will endorse to oncoming RN.
--- NOTE | 2018-09-24 19:40 | NUR ---
MS1 RN NOTES RECEIVED ON BED A/O X4,BREATHING NON LABORED,NOTED GENERALIZED JAUNDICE,ABDOMEN DISTENDED BUT SOFT DUE TO ASCITES.WITH SALINE LOCK ON RIGHT AND LEFT ARM.WITH IVF WITH 40 MEQ KCL INFUSING AT 75ML/HR RATE VIA IV PUMP.VISITORS AT BEDSIDE.AMBULATE WITH ASSIST.CALL LIGHT IN REACH,NEEDS ANTICIPATED.
--- NOTE | 2018-09-24 20:30 | NUR ---
MS 1 RN NOTES REPORT GIVEN TO JABARI FOR CONTINUITY OF CARE.
--- NOTE | 2018-09-24 21:16 | NUR ---
IVY RECEIVED REPORT FROM RN FOR CONTINUITY OF CARE. PRESENT IVF INFUSING WELL, ABDOMEN DISTENDED, NO SOB SEEN. SAFETY PRECAUTIONS EMPHASIZED, APPEARS TO UNDERSTAND. CLOSELY WATCHED.
--- NOTE | 2018-09-24 22:44 | NUR ---
MSRN ASSITED TO RESTROOM HAD LOOSE BM. ASSISTED BACK TO BED NEED HELP POSITIONING. HS CARE STARTED BY SECURITY ESCORT. OFFERED BSC DECLINED. FLUIDS RESTRICTED. WILL HOLD LACTULOSE FOR NOW. STATED HAVING FREQUENT DIARRHEA. IVF CONTINUED.
[2018-09-24 23:13] VITALS: BP 113/78
[2018-09-24 23:21] VITALS: BP 113/78
--- NOTE | 2018-09-25 00:26 | NUR ---
MSRN ENDORSED TO RN FOR CONTINUITY OF CARE
[2018-09-25] MEDS: LACTULOSE 10 G/15 ML UDC (PYXIS) PO SCH ×4 (01:30→19:30)
[2018-09-25 04:00] VITALS: BP 114/88
--- NOTE | 2018-09-25 07:10 | NUR ---
RN OPENING NOTES RECEIVED PT. IN BED A&OX4. BREATHING UNLABORED ON ROOM AIR. NO S/S OF ACUTE DISTRESS. IV FLUIDS RUNNING AT 75 ML/HR. BED IS IN LOWEST, AND LOCKED POSITION. 2 SIDE RAILS UP, AND INSTRUCTED PT. TO USE CALL LIGHT FOR ASSISTANCE.
[2018-09-25] MEDS: PANTOPRAZOLE 40 MG TABLET.DR PO SCH (07:33)
--- NOTE | 2018-09-25 07:33 | NUR ---
MS1 RN NOTES ON BED A/O X2-3,NO COMPLAINTS OF PAIN,BREATHING NON LABORED,JAUNDICED.CALL LIGHT IN REACH,NEEDS ATTENDED.
[2018-09-25 07:48] LABS: BASOPHILS # (AUTO) 0.1 /CMM (0.0-0.2); BASOPHILS % (AUTO) 0.4 % (0.0-2.0); EOSINOPHILS % (AUTO) 0.4 % (0.0-6.0); HEMATOCRIT 33 % (39-51); HEMOGLOBIN 11.3 g/dL (13.5-17.5); LYMPHOCYTES # (AUTO) 1.4 /CMM (0.8-4.8); LYMPHOCYTES % (AUTO) 7.9 % (20.0-44.0); MEAN CORPUSCULAR HGB CONC 34 g/dl (31.0-36.0); MEAN CORPUSCULAR VOLUME 122 fL (80-96); MONOCYTES # (AUTO) 0.6 /CMM (0.1-1.30); MONOCYTES % (AUTO) 3.6 % (2.0-12.0); NEUTROPHILS # (AUTO) 15.5 /CMM (1.8-8.9); NEUTROPHILS % (AUTO) 87.7 % (43.0-81.0); PLATELET COUNT (AUTO) 143 /CMM (150-450); RED BLOOD CELL COUNT(AUTO) 2.73 MIL/uL (4.5-6.0); WHITE BLOOD COUNT (AUTO) 17.6 K/uL (4.3-11.0)
[2018-09-25 08:00] VITALS: BP 107/77
[2018-09-25 08:00] LABS: CALCIUM, SERUM 6.2 mg/dL (8.5-10.1); CREATININE 1.3 mg/dL (0.6-1.3); POTASSIUM 4.6 mmol/L (3.5-5.1)
[2018-09-25] MEDS: ENSURE CLEAR 237 ML LIQUID (MIX BERRY) PO SCH ×2 (08:00→17:00)
--- NOTE | 2018-09-25 08:38 | NUR ---
WOUND CARE CONSULT PATIENT SEEN FOR COCCYX SKIN ISSUES, SEE SEE ASSESSMENT, RECOMMENDED TO USE Z GUARD ORDERED, PATIENT AMBULATED, INDEPENDENT WITH BED MOBILITY, NO LONGER HAS LOOSE STOOL , WILL SEE PRN Addendum: 09/25/18 at 0841 by GARLAND LO RN Amended: Links added.
[2018-09-25] MEDS ORDERED: IV D5/0.45 NACL 1,000 ML IV PRN (09:00)
[2018-09-25] MEDS ORDERED: ALBUMIN 25% 25 GM in PREMIX 1 EA IV SCH (09:30)
[2018-09-25] MEDS: NITROFURANTOIN/NITROFURAN MAC 100 MG CAPSULE PO SCH ×2 (10:00→20:32)
[2018-09-25] MEDS: AMLODIPINE BESYLATE 5 MG TABLET PO SCH (10:01)
[2018-09-25] MEDS: CLOTRIMAZOLE 1% 15 GM TUBE TP SCH ×2 (10:03→16:59)
[2018-09-25] MEDS: ALBUMIN 25% 25 GM in PREMIX 1 EA IV SCH ×2 (11:12→22:01)
[2018-09-25 16:00] VITALS: BP 107/75
[2018-09-25] MEDS: CEFTRIAXONE 2 G in IV D5W 100 ML IV SCH (16:44)
--- NOTE | 2018-09-25 19:53 | NUR ---
RN CLOSING NOTES PT. IN BED A&OX4. BREATHING UNLABORED ON ROOM AIR. NO S/S OF ACUTE DISTRESS. BED IS IN LOWEST, AND LOCKED POSITION. 2 SIDE RAILS UP, AND INSTRUCTED PT. TO USE CALL LIGHT FOR ASSISTANCE. WILL ENDORSE REPORT TO NURSE.
[2018-09-25 20:00] VITALS: BP 105/68
[2018-09-25] MEDS: CALCIUM CARBONATE 500 MG TAB.CHEW PO PRN (22:02)
[2018-09-26] MEDS: LACTULOSE 10 G/15 ML UDC (PYXIS) PO SCH ×4 (01:30→19:30)
[2018-09-26 04:00] VITALS: BP 95/62
[2018-09-26] MEDS: PANTOPRAZOLE 40 MG TABLET.DR PO SCH (06:33)
[2018-09-26 06:43] LABS: BASOPHILS % (AUTO) 0.3 % (0.0-2.0); EOSINOPHILS % (AUTO) 0.5 % (0.0-6.0); HEMATOCRIT 28 % (39-51); HEMOGLOBIN 9.6 g/dL (13.5-17.5); LYMPHOCYTES # (AUTO) 1.4 /CMM (0.8-4.8); LYMPHOCYTES % (AUTO) 9.1 % (20.0-44.0); MEAN CORPUSCULAR HGB CONC 35 g/dl (31.0-36.0); MEAN CORPUSCULAR VOLUME 122 fL (80-96); MONOCYTES # (AUTO) 0.8 /CMM (0.1-1.30); MONOCYTES % (AUTO) 5.2 % (2.0-12.0); NEUTROPHILS # (AUTO) 12.7 /CMM (1.8-8.9); NEUTROPHILS % (AUTO) 84.9 % (43.0-81.0); PLATELET COUNT (AUTO) 113 /CMM (150-450); RED BLOOD CELL COUNT(AUTO) 2.25 MIL/uL (4.5-6.0)
--- NOTE | 2018-09-26 06:58 | NUR ---
RN CLOSING NOTES PATIENT COMPLAINING OF PRESSURE IN STOMACH, INTERMITTENT COMPLAINTS OF NAUSEA WITH PATIENT SPITTING OUT GASTRIC FLUIDS. COMPLAINING OF SHORTNESS OF BREATH WITH STOMACH PRESSURE. STRICT FLUID RESTRICTION REINFORCED OF 900mL/day. ALBUMIN GIVEN ORDERED. MEDICATED PATIENT WITH TUMS AND ZOFRAN WITH MINIMAL HELP FOR THE PATIENT. PATIENT WITH HOB ELEVATED FOR COMFORT. REPOSITIONED NEEDED. NEEDS ANTICIPATED AND MET. CALL LIGHT IN REACH. WILL ENDORSE ACCORDINGLY.
--- NOTE | 2018-09-26 07:12 | NUR ---
rn opening notes received patient in stable condition. no acute distress, no sob noted. denied pain or discomfort at the moment. iv access intact and patent. kept patient safe and comfortable. bed in low/locked position, siderails upx2, call light in reach. will continue to monitor accordingly.
[2018-09-26 07:15] LABS: CALCIUM, SERUM 6.1 mg/dL (8.5-10.1); CREATININE 1.5 mg/dL (0.6-1.3)
[2018-09-26 08:00] VITALS: BP 111/73
[2018-09-26] MEDS: CLOTRIMAZOLE 1% 15 GM TUBE TP SCH ×2 (09:22→18:14)
[2018-09-26] MEDS: NITROFURANTOIN/NITROFURAN MAC 100 MG CAPSULE PO SCH (09:22)
[2018-09-26] MEDS: AMLODIPINE BESYLATE 5 MG TABLET PO SCH (09:23)
[2018-09-26] MEDS: ENSURE CLEAR 237 ML LIQUID (MIX BERRY) PO SCH ×2 (09:25→18:14)
[2018-09-26 10:04] LABS: BAND % (MANUAL) 4 % (0.0-5.0); LYMPHOCYTES % (MANUAL) 11 % (16-48); NEUTROPHILS % (MANUAL) 79 (42-76)
[2018-09-26 10:06] LABS: MONOCYTES % (MANUAL) 6 % (0-11.0)
[2018-09-26 12:00] VITALS: BP 119/78
[2018-09-26] MEDS: ALBUMIN 25% 25 GM in PREMIX 1 EA IV SCH ×2 (12:08→23:41)
[2018-09-26 16:00] VITALS: BP 116/73
[2018-09-26] MEDS: CEFTRIAXONE 2 G in IV D5W 100 ML IV SCH (18:13)
--- NOTE | 2018-09-26 19:30 | NUR ---
rn closing notes patient in stable condition. all needs attended and provided. all due medications given as ordered. kept patient safe and comfortable. bed in low/locked position. siderails upx2, call light in reach. endorsed to night rn for collin.
[2018-09-26 20:00] VITALS: BP 127/80
--- NOTE | 2018-09-26 20:00 | NUR ---
RN OPENING NOTES RECEIVED PT REPORT FROM AM NURSE. PATIENT IS IN BED A&OX4. BREATHING UNLABORED ON ROOM AIR. NO S/S OF ACUTE DISTRESS. PATIENT COMPLAINS OF LOW BACK PAIN 3/10 AT THIS TIME. BED IS IN LOWEST, AND LOCKED POSITION. 2 SIDE RAILS UP, AND INSTRUCTED PT. TO USE CALL LIGHT FOR ASSISTANCE. PATIENT IS ON 900ML FLUID RESTRICTION. IV LINE IS PATIENT, INTACT. SKIN IS YELLOW JAUNDICED.
[2018-09-26] MEDS: CALCIUM CARBONATE 500 MG TAB.CHEW PO PRN (22:49)
[2018-09-27] MEDS: LACTULOSE 10 G/15 ML UDC (PYXIS) PO SCH ×4 (01:30→19:30)
[2018-09-27 04:00] VITALS: BP 108/71
[2018-09-27 07:13] LABS: BASOPHILS # (AUTO) 0.1 /CMM (0.0-0.2); BASOPHILS % (AUTO) 0.5 % (0.0-2.0); EOSINOPHILS % (AUTO) 0.9 % (0.0-6.0); HEMATOCRIT 24 % (39-51); HEMOGLOBIN 8.4 g/dL (13.5-17.5); LYMPHOCYTES # (AUTO) 1.2 /CMM (0.8-4.8); MEAN CORPUSCULAR HGB CONC 35 g/dl (31.0-36.0); MEAN CORPUSCULAR VOLUME 121 fL (80-96); MONOCYTES # (AUTO) 0.4 /CMM (0.1-1.30); MONOCYTES % (AUTO) 3.5 % (2.0-12.0); NEUTROPHILS # (AUTO) 9.9 /CMM (1.8-8.9); NEUTROPHILS % (AUTO) 85.1 % (43.0-81.0); PLATELET COUNT (AUTO) 86 /CMM (150-450); RED BLOOD CELL COUNT(AUTO) 2.01 MIL/uL (4.5-6.0); WHITE BLOOD COUNT (AUTO) 11.7 K/uL (4.3-11.0)
--- NOTE | 2018-09-27 07:44 | NUR ---
RN OPENING NOTES PT RECEIVED IN BED AT LOWEST AND LOCKED POSITION WITH SIDE RAILS UP X2, A/O X4, BREATHING EVEN AND UNLABORED, NO PAIN OR DISTRESS NOTED AT THIS TIME, IV IS PATENT AND INTACT, NOTED TO HAVE JAUNDICE, SAFETY PRECAUTIONS IN PLACE, CALL LIGHT WITHIN REACH, WILL MONITOR ACCORDINGLY
[2018-09-27 07:49] LABS: ALBUMIN 2.6 g/dL (3.4-5.0); BILIRUBIN,DIRECT 8.1 mg/dL (0.0-0.2); BILIRUBIN,TOTAL 10.6 mg/dL (0.2-1.0); CALCIUM, SERUM 6.4 mg/dL (8.5-10.1); CREATININE 1.4 mg/dL (0.6-1.3); POTASSIUM 3.1 mmol/L (3.5-5.1); TOTAL PROTEIN, SERUM 5.7 g/dL (6.4-8.2)
[2018-09-27 08:00] VITALS: BP 111/70
[2018-09-27] MEDS: PANTOPRAZOLE 40 MG TABLET.DR PO SCH (08:19)
[2018-09-27] MEDS: AMLODIPINE BESYLATE 5 MG TABLET PO SCH (08:20)
[2018-09-27] MEDS: ENSURE CLEAR 237 ML LIQUID (MIX BERRY) PO SCH ×2 (08:22→16:00)
[2018-09-27] MEDS: CLOTRIMAZOLE 1% 15 GM TUBE TP SCH ×2 (08:22→16:00)
[2018-09-27] MEDS: POTASSIUM CHLORIDE 20 MEQ TAB.PRT.SR PO SCH ×2 (09:26→10:27)
--- NOTE | 2018-09-27 11:00 | NUR ---
RN NOTES POTASSIUM WAS REPLACED
[2018-09-27 11:55] LABS: BAND % (MANUAL) 5 % (0.0-5.0); EOSINOPHILS % (MANUAL) 2 % (0-4); LYMPHOCYTES % (MANUAL) 11 % (16-48); MONOCYTES % (MANUAL) 4 % (0-11.0); NEUTROPHILS % (MANUAL) 78 (42-76)
[2018-09-27 12:00] VITALS: BP 104/65
[2018-09-27 12:23] VITALS: BP 104/65
[2018-09-27 16:00] VITALS: BP 104/66
[2018-09-27] MEDS: CEFTRIAXONE 2 G in IV D5W 100 ML IV SCH (16:00)
--- NOTE | 2018-09-27 16:45 | NUR ---
RN NOTES RIGHT HAND IV WAS REMOVED, NEW IV IV WAS PLACED IN THE RIGHT AC GAUGE 20
--- NOTE | 2018-09-27 18:21 | NUR ---
RN CLOSING NOTES PT IN BED AT LOWEST AND LOCKED POSITION WITH SIDE RAILS UP X2, A/O X4, BREATHING EVEN AND UNLABORED, NO PAIN OR DISTRESS NOTED AT THIS TIME, RIGHT AC #20 IV IS PATENT AND INTACT, SAFETY PRECAUTIONS IN PLACE, CALL LIGHT WITHIN REACH, ALL NEEDS WERE ATTENDED TO, WILL ENDORSE TO AWNING INSTALLER RN FOR CONTINUITY OF CARE
[2018-09-27 20:00] VITALS: BP 106/66
--- NOTE | 2018-09-27 20:00 | NUR ---
MS/RN NOTES: RECEIVED PT. IN BED W/ HOB ELEVATED. W/ FRIEND AT BEDSIDE. DENIES ANY C/O CHEST PAIN OR SOB AT PRESENT. PT. 900 FLUID RESTRICTION/DAY. W/ RIGHT AC G 20 PATENT AND INTACT W/ NO S/S OF INFECTION/INFILTRATION NOTED. CALL LIGHT W/REACH. NOTED TO HAVE JAUNDICE ALL OVER THE BODY. PT. ABDOMEN IS DISTENDED. PT. HAD PARACENTESIS ON 09/23/2018 ON LLQ W/ 3.3 L OUT. WILL CONTINUE TO MONITOR.
--- NOTE | 2018-09-28 01:00 | NUR ---
MS/RN NOTES: PT. REFUSED TO TAKE WOUND PICTURES. EXPLAINED THE IMPORTANCE AND THAT IT IS THE POLICY BUT STILL REFUSED. CHARGE NURSE MADE AWARE.
[2018-09-28] MEDS: LACTULOSE 10 G/15 ML UDC (PYXIS) PO SCH ×2 (01:28→07:30)
[2018-09-28 04:00] VITALS: BP 106/74
[2018-09-28 07:28] LABS: CALCIUM, SERUM 6.9 mg/dL (8.5-10.1); CARBON DIOXIDE 25 mmol/L (21-32); CHLORIDE 99 mmol/L (98-107); CREATININE 1.1 mg/dL (0.6-1.3); GLUCOSE 128 mg/dL (74-106); POTASSIUM 3.6 mmol/L (3.5-5.1); SODIUM SERUM 134 mmol/L (136-145); UREA NITROGEN, BLOOD 46 mg/dL (7-18)
--- NOTE | 2018-09-28 07:28 | NUR ---
MS/RN NOTES: PAGED DR. GARCIA @ 6 A.M.REGARDING PT. ASKING FOR HIS ABDOMEN BEING DISTENDED/PAIN/WANTING HIS FLUIDS REMOVED LIKE LAST TIME. ENDORSED AM SHIFT NURSE TO F/U. BEDSIDE REPORT GIVEN.
[2018-09-28 07:32] LABS: PHOSPHORUS 0.9 mg/dL (2.5-4.9)
[2018-09-28 07:37] LABS: BASOPHILS % (AUTO) 0.1 % (0.0-2.0); EOSINOPHILS % (AUTO) 0.7 % (0.0-6.0); HEMATOCRIT 25 % (39-51); HEMOGLOBIN 8.7 g/dL (13.5-17.5); LYMPHOCYTES # (AUTO) 1.9 /CMM (0.8-4.8); LYMPHOCYTES % (AUTO) 13.2 % (20.0-44.0); MEAN CORPUSCULAR HGB CONC 34 g/dl (31.0-36.0); MEAN CORPUSCULAR VOLUME 121 fL (80-96); MONOCYTES # (AUTO) 0.7 /CMM (0.1-1.30); NEUTROPHILS # (AUTO) 11.8 /CMM (1.8-8.9); PLATELET COUNT (AUTO) 79 /CMM (150-450); RED BLOOD CELL COUNT(AUTO) 2.08 MIL/uL (4.5-6.0); WHITE BLOOD COUNT (AUTO) 14.6 K/uL (4.3-11.0)
--- NOTE | 2018-09-28 07:50 | NUR ---
MAEVE RN NOTE RECEIVED A CALL FROM LAB THAT PATIENT'S PHOSPHORUS IS 0.9 AND LACTIC ACID 2.3 AND MAGNESIUM 1.0. PAGED DR. VALDEZ IMMEDIATELY AND RECEIVED ORDERS TO REPLACE MAGNESIUM AND PHOSPHORUS INTRAVENOUSLY.
[2018-09-28 08:00] VITALS: BP 132/72
[2018-09-28] MEDS ORDERED: POTASSIUM PHOSPHATE MM IV SCH (08:00)
[2018-09-28] MEDS ORDERED: D5W IV SCH (08:00)
[2018-09-28] MEDS ORDERED: Magnesium 1GM/D5W 100ML PREMIX PIGGYBACK IV SCH (08:00)
[2018-09-28] MEDS: PANTOPRAZOLE 40 MG TABLET.DR PO SCH (08:53)
[2018-09-28] MEDS: Magnesium 1GM/D5W 100ML PREMIX 100 ML IV SCH ×4 (08:55→12:39)
[2018-09-28] MEDS: CLOTRIMAZOLE 1% 15 GM TUBE TP SCH ×2 (08:56→18:36)
[2018-09-28] MEDS: ENSURE CLEAR 237 ML LIQUID (MIX BERRY) PO SCH ×2 (10:04→18:35)
[2018-09-28] MEDS: POTASSIUM PHOSPHATE MM 7.5 MMOL in IV D5W 100 ML IV SCH ×4 (11:11→22:52)
[2018-09-28 16:00] VITALS: BP 98/67
[2018-09-28] MEDS: CEFTRIAXONE 2 G in IV D5W 100 ML IV SCH (18:35)
[2018-09-28 20:30] VITALS: BP 104/61
--- NOTE | 2018-09-28 20:40 | NUR ---
RN OPENING NOTES PT AWAKE AND RESTING IN BED. NO COMPLAINTS OF PAIN SOB OR DISTRESS AT THIS TIME. PT HAS RIGHT AC #20 AND RIGHT FA #22 IV INTACT AND PATENT. PT IS ON 900ML FLUID RESTRICTION. SAFETY PRECAUTIONS IN PLACE, BED IN LOWEST LOCKED POSITION, X2 SIDE RAILS UP AND CALL LIGHT WITHIN REACH. WILL CONTINUE TO MONITOR.
--- NOTE | 2018-09-29 06:37 | NUR ---
RN CLOSING NOTES PT AWAKE AND RESTING IN BED. NO COMPLAINTS OF PAIN SOB OR DISTRESS AT THIS TIME. ALL PATIENT NEEDS MET OVERNIGHT. PT HAS RIGHT AC #20 AND RIGHT FA #22 IV INTACT AND PATENT. PT IS ON 900ML FLUID RESTRICTION. SAFETY PRECAUTIONS IN PLACE, BED IN LOWEST LOCKED POSITION, X2 SIDE RAILS UP AND CALL LIGHT WITHIN REACH. WILL ENDORSE TO DAY SHIFT NURSE FOR CONTINUITY OF CARE.
[2018-09-29 08:00] VITALS: BP 105/71
--- NOTE | 2018-09-29 08:00 | NUR ---
MS RN RECEIVED ON BED, AWAKE,ALERT,ORIENTED X4,NOT IN ANY FORM OF DISTRESS, RESPIRATIONS EVEN AND UNLABORED,NO SOB NOTED, LUNGS ARE CLEAR,ABDOMEN SOFT,POSITIVE BOWEL SOUNDS,DENIES PAIN AT THIS TIME,ALL NEEDS ATTENDED.
[2018-09-29] MEDS: CALCIUM CARBONATE 500 MG TAB.CHEW PO PRN (08:09)
[2018-09-29] MEDS: ENSURE CLEAR 237 ML LIQUID (MIX BERRY) PO SCH (08:09)
[2018-09-29] MEDS: PANTOPRAZOLE 40 MG TABLET.DR PO SCH (08:09)
--- NOTE | 2018-09-29 08:27 | NUR ---
MS RODRIGUEZ BREAKFAST SERVED,DUE MEDS GIVEN, TOLERATED WELL.
[2018-09-29] MEDS: CLOTRIMAZOLE 1% 15 GM TUBE TP SCH (09:00)
--- NOTE | 2018-09-29 12:05 | NUR ---
MS RODRIGUEZ WAS SEEN BY DR. GRISELDA Castellanos/ ORDERS MADE AND CARRIED OUT.
[2018-09-29] MEDS ORDERED: ACETAMINOPHEN 325 MG TABLET PO PRN ×2 (12:30)
[2018-09-29 16:00] VITALS: BP 90/64
[2018-09-29] MEDS: CEFTRIAXONE 2 G in IV D5W 100 ML IV SCH (16:46)
--- NOTE | 2018-09-29 18:46 | NUR ---
ms rn walking w/ ,no distress noted.
[2018-09-29 20:00] VITALS: BP 98/65
--- NOTE | 2018-09-29 20:00 | NUR ---
RN OPENING NOTES REPORT RECEIVED FROM AM RN. PATIENT A/A/O X3, ABLE TO MAKE NEEDS KNOWN. BREATHING EVEN & UNLABORED, TOLERATING ROOM AIR. DENIES SOB OR DIFFICULTY BREATHING. RADIAL PULSES PRESENT. RIGHT AC IV #20 & RIGHT FOREARM IV #22 INTACT & PATENT W/ DRESSING CDI, SALINE LOCKED. DENIES ANY PAIN OR DISCOMFORT @ THIS TIME. SAFETY MEASURES IN PLACE W/ SIDE RAILS UP & BED LOCKED IN LOWEST POSITION. ABLE TO AMBULATE W/ STEADY GAIT BUT INSTRUCTED TO CALL FOR ASSISTANCE. WILL CONTINUE TO MONITOR.
[2018-09-30 04:00] VITALS: BP 96/67
[2018-09-30 06:17] LABS: BASOPHILS % (AUTO) 0.2 % (0.0-2.0); HEMATOCRIT 24 % (39-51); HEMOGLOBIN 8.3 g/dL (13.5-17.5); LYMPHOCYTES # (AUTO) 1.9 /CMM (0.8-4.8); LYMPHOCYTES % (AUTO) 12.7 % (20.0-44.0); MEAN CORPUSCULAR HGB CONC 34 g/dl (31.0-36.0); MEAN CORPUSCULAR VOLUME 121 fL (80-96); MONOCYTES # (AUTO) 0.9 /CMM (0.1-1.30); MONOCYTES % (AUTO) 6.2 % (2.0-12.0); NEUTROPHILS # (AUTO) 11.9 /CMM (1.8-8.9); NEUTROPHILS % (AUTO) 79.9 % (43.0-81.0); PLATELET COUNT (AUTO) 56 /CMM (150-450); RED BLOOD CELL COUNT(AUTO) 2.02 MIL/uL (4.5-6.0); WHITE BLOOD COUNT (AUTO) 14.9 K/uL (4.3-11.0)
[2018-09-30 06:28] LABS: MAGNESIUM 1.3 mg/dL (1.8-2.4); PHOSPHORUS 1.2 mg/dL (2.5-4.9); POTASSIUM 3.4 mmol/L (3.5-5.1)
[2018-09-30 08:00] VITALS: BP 94/67
[2018-09-30] MEDS: ENSURE CLEAR 237 ML LIQUID (MIX BERRY) PO SCH ×2 (08:00→17:29)
--- NOTE | 2018-09-30 08:00 | NUR ---
MS RN AM NOTES PATIENT A/A/O X3, ABLE TO MAKE NEEDS KNOWN. BREATHING EVEN & UNLABORED, TOLERATING ROOM AIR. DENIES SOB OR DIFFICULTY BREATHING. RADIAL PULSES PRESENT. RIGHT AC IV #20 & RIGHT FOREARM IV #22 INTACT & PATENT W/ DRESSING CDI, SALINE LOCKED. DENIES ANY PAIN OR DISCOMFORT.SAFETY MEASURES IN PLACE W/ SIDE RAILS UP & BED LOCKED IN LOWEST POSITION. ABLE TO AMBULATE W/ STEADY GAIT BUT INSTRUCTED TO CALL FOR ASSISTANCE. WILL CONTINUE TO MONITOR.CALL LIGHT PLACED WITHIN REACH.
[2018-09-30] MEDS: PANTOPRAZOLE 40 MG TABLET.DR PO SCH (08:38)
[2018-09-30] MEDS: CLOTRIMAZOLE 1% 15 GM TUBE TP SCH ×2 (09:00→17:28)
[2018-09-30 09:06] LABS: BAND % (MANUAL) 5 % (0.0-5.0); LYMPHOCYTES % (MANUAL) 19 % (16-48); MONOCYTES % (MANUAL) 8 % (0-11.0); NEUTROPHILS % (MANUAL) 68 (42-76)
[2018-09-30] MEDS: Magnesium 1GM/D5W 100ML PREMIX 100 ML IV SCH ×6 (09:46→16:18)
[2018-09-30] MEDS ORDERED: POTASSIUM CHLORIDE 20 MEQ TAB.PRT.SR PO SCH (10:30)
[2018-09-30 12:00] VITALS: BP 122/68
[2018-09-30] MEDS ORDERED: SPIRONOLACTONE 25 MG TABLET PO SCH (12:30)
[2018-09-30] MEDS ORDERED: Lactose-Free Food PO (12:34)
[2018-09-30] MEDS ORDERED: PANT40TA2 PO (12:35)
[2018-09-30] MEDS ORDERED: SPIR25TA PO (12:35)
[2018-09-30] MEDS ORDERED: Potassium Phosphate meq 11 MEQ in IV NS 0.9% 100 ML IV SCH (13:00)
[2018-09-30 16:00] VITALS: BP 107/74
[2018-09-30] MEDS ORDERED: POTASSIUM PHOSPHATE MM 7.5 MMOL in IV NS 0.9% 100 ML IV SCH (17:00)
--- NOTE | 2018-09-30 17:04 | NUR ---
MS RN NOTES CLARIFIED ORDERS REGARDING POTASSIUM PHOSPHATE IV WITH DR GRISELDA DOWNING WITH NEW ORDERS TO CHANGE TO ONE BAG AND GIVE 2 PACKETS OF K PHOS PACKET BEFORE POTASSIUM PHOSPHATE IV AND GIVE K PHOS 2 PACKET AFTER ADMINISTRATION. NOTED AND CARRIED OUT.
[2018-09-30] MEDS ORDERED: NEUTRA PHOS 1 POWD.PACKET PO ONE ×2 (17:30→20:30)
[2018-09-30] MEDS: CEFTRIAXONE 2 G in IV D5W 100 ML IV SCH (17:34)
--- NOTE | 2018-09-30 19:00 | NUR ---
MS RN AM NOTES PATIENT ALERT ORIENTED X 3, ABLE TO MAKE NEEDS KNOWN. BREATHING EVEN & UNLABORED, TOLERATING ROOM AIR. DENIES SOB OR DIFFICULTY BREATHING. RADIAL PULSES PRESENT. IV ACCESS INTACT & PATENT W/ DRESSING CDI, SALINE LOCKED. DENIES ANY PAIN OR DISCOMFORT.SAFETY MEASURES IN PLACE W/ SIDE RAILS UP & BED LOCKED IN LOWEST POSITION.NEEDS ATTENDED AND ANTICIPATED. DUE MEDICATIONS GIVEN, NO ASE NOTED. ABLE TO AMBULATE W/ STEADY GAIT BUT INSTRUCTED TO CALL FOR ASSISTANCE. CALL LIGHT PLACED WITHIN REACH. PATIENT FOR DISCHARGE TONIGHT, ENDORSED TO NIGHT NURSE FOR CONTINUITY OF CARE AND DISCHARGE.
[2018-09-30 20:00] VITALS: BP 99/66
--- NOTE | 2018-09-30 20:10 | NUR ---
RN OPENING NOTES REPORT RECEIVED FROM JOLLY RODRIGUEZ. PATIENT A/A/O X3, ABLE TO MAKE NEEDS KNOWN. BREATHING EVEN & UNLABORED, TOLERATING ROOM AIR. DENIES SOB OR DIFFICULTY BREATHING. RADIAL PULSES PRESENT. RIGHT AC IV #20 & RIGHT FOREARM IV #22 INTACT & PATENT W/ DRESSING CDI, SALINE LOCKED. DENIES ANY PAIN OR DISCOMFORT @ THIS TIME. SAFETY MEASURES IN PLACE W/ SIDE RAILS UP & BED LOCKED IN LOWEST POSITION. ABLE TO AMBULATE W/ STEADY GAIT BUT INSTRUCTED TO CALL FOR ASSISTANCE. AWAITING DISCHARGE.
--- NOTE | 2018-09-30 21:45 | NUR ---
RN NOTES PATIENT FOR DISCHARGE TONIGHT. FAMILY LOOKING FOR FWW. NOTED NO DME ORDERED. PER PATIENT TREVIN LAZO TOLD HIM HE WOULD NEED A FWW ON DISCHARGE. SENT MESSAGE TO [employer] REPRESENTATIVE. FELLMONGERY WORKER, MIKI MADE AWARE AND SENT FWW TO PATIENT PER [employer]'S INSTRUCTION. JENNIFER, KAYE RN MADE AWARE
--- NOTE | 2018-09-30 23:04 | NUR ---
RN NOTES PATIENT DISCHARGED BACK HOME W/ COUSIN & NEPHEW @ [id number]. DISCHARGE INSTRUCTIONS GIVEN & PAPERWORK SIGNED. FWW PROVIDED FOR USE AT HOME. PATIENT VERBALIZED UNDERSTANDING OF EDUCATION & INSTRUCTIONS.
== END 2018-09-30 22:30 | disposition home or self-care (01) | DRG 432 ==
LOC: TELE1 09-19 02:09 → MEDSG1 09-19 13:42 → TELE-TD 09-19 14:45 → MEDSG1 09-22 09:43
PROVIDERS: ADMIT Internal Medicine
PROC: 0W9G3ZZ Drainage of Peritoneal Cavity, Percutaneous Approach (ICD-10-PCS; principal; 2018-09-23)
PROC: 0W9G3ZZ Drainage of Peritoneal Cavity, Percutaneous Approach (ICD-10-PCS; 2018-09-28)
DX: K70.31 Alcoholic cirrhosis of liver with ascites (principal); E43 Unspecified severe protein-calorie malnutrition; N17.0 Acute kidney failure with tubular necrosis; I81 Portal vein thrombosis; K65.2 Spontaneous bacterial peritonitis; K85.20 Alcohol induced acute pancreatitis without necrosis or infection; E87.1 Hypo-osmolality and hyponatremia; N39.0 Urinary tract infection, site not specified; E87.2 Acidosis; K76.6 Portal hypertension; F10.288 Alcohol dependence with other alcohol-induced disorder; D68.9 Coagulation defect, unspecified; K70.11 Alcoholic hepatitis with ascites; E83.39 Other disorders of phosphorus metabolism; E78.5 Hyperlipidemia, unspecified; D53.9 Nutritional anemia, unspecified; B96.20 Unspecified Escherichia coli [E. coli] as the cause of diseases classified elsewhere; E83.42 Hypomagnesemia; D50.9 Iron deficiency anemia, unspecified; E87.6 Hypokalemia; F17.210 Nicotine dependence, cigarettes, uncomplicated; I10 Essential (primary) hypertension; T51.0X1A Toxic effect of ethanol, accidental (unintentional), initial encounter; Y90.9 Presence of alcohol in blood, level not specified; E88.09 Other disorders of plasma-protein metabolism, not elsewhere classified; Z68.29 Body mass index [BMI] 29.0-29.9, adult; D69.59 Other secondary thrombocytopenia
CPT/HCPCS: 36415; 71045-TC; 76942-TC; 80048-TC; 80053-TC; 80061-TC; 80074; 80076-TC; 81000-TC; 82040-TC; 82140-TC; 82150-TC; 82247-TC; 82248-TC; 82378; 82550-TC; 82570-TC; 83605-TC; 83690-TC; 83735-TC; 83935-TC; 83970; 84100-TC; 84155; 84155-TC; 84165; 84300-TC; 84443-TC; 84484-TC; 85025-TC; 85610-TC; 85730-TC; 86140-TC; 87040-TC; 87070-TC; 87075-TC; 87081-TC; 87086-TC; 87186-TC; 89051-TC; 93307-TC; 93979-TC; A4216; A4606; A6253; A6402; G0378; J0696; J0698; J1956; J2405; J3430; J3475; J3480; J3490; J7030; J7042; J7050; J7060; J7120; P9047; Q0163; Q9967; Z7610